=== PATIENT | male | born 1960 | race African-American/Black ===

== ENCOUNTER 2022-08-15 18:32 | Emergency (ER) | payer MEDICARE, SELFPAY ==
--- NOTE | 2022-08-15 18:42 | ED.LOWEXIN ---
HPI - Extremity Injury (Lower) General Chief Complaint: Extremity Injury, Lower Stated Complaint: Left Foot Pain Source: patient and RN notes reviewed History of Present Illness HPI Narrative: 64 yo M presents to urgent care with at side. Pt states he began having a gout flare-up in his left great toe yesterday. Pt states he has these often due to his renal failure and inability to take allopurinol daily. Pt states he now takes allopurinol 3x/week since his kidney transplant has failed and he is now back on dialysis. Pt denies any injury or trauma to the foot. Denies any fevers, chills, numbness, or tingling. Related Data Home Medications Medication Instructions Recorded Confirmed allopurinol 100 mg tablet mg 08/15/22 apixaban 5 mg tablet (Eliquis) mg 08/15/22 azathioprine 100 mg tablet mg 08/15/22 bupropion HCl 150 mg 24 hr tablet, mg PO 08/15/22 extended release carvedilol 25 mg tablet mg 08/15/22 diltiazem HCl 180 mg mg PO 08/15/22 capsule,extended release 24 hr, controlled (DILT-XR) famotidine 20 mg tablet mg 08/15/22 fluticasone furoate 200 inhalation 08/15/22 mcg-vilanterol 25 mcg/dose inhalation powder (Breo Ellipta) hydralazine 10 mg tablet mg 08/15/22 hydrocodone 10 mg-acetaminophen tablet 08/15/22 325 mg tablet montelukast 10 mg tablet mg 08/15/22 pravastatin 40 mg tablet mg 08/15/22 prednisone 5 mg tablet mg 08/15/22 sildenafil 100 mg tablet mg 08/15/22 tacrolimus 1 mg capsule, mg 08/15/22 immediate-release temazepam 30 mg capsule mg 08/15/22 Allergies Allergy/AdvReac Type Severity Reaction Status Date / Time No Known Allergies Allergy Verified 08/15/22 18:59 Review of Systems Review of Systems: CONSTITUTIONAL: Denies fever, chills, or sweats. EYES: Denies visual changes, redness, or discharge. ENT: Denies otalgia and sore throat CARDIOVASCULAR: Denies chest pain, palpitations, or edema. RESPIRATORY: Denies cough or dyspnea. GASTROINTESTINAL: Denies abdominal pain, nausea, vomiting, or diarrhea. GENITOURINARY: Denies dysuria or hematuria. SKIN: Denies rash or itching. MUSCULOSKELETAL: Denies back pain, joint pain, or myalgia. NEUROLOGIC: Denies headache, numbness, or weakness. Pertinent positives per HPI. PMFSH Comments At the time of my signature, I reviewed and agree with the nursing past medical, surgical, social, and family history. There is no relevant family history pertinent to the patient complaint. Exam Narrative: GENERAL: This is a well-nourished, well-developed patient, in no apparent distress. HEAD: normocephalic, atraumatic. EYES: Sclera clear/white. Vision is grossly intact. EARS: External ears normal, auditory canals clear and without drainage. Hearing grossly intact. NOSE: External nose normal with no obvious nasal discharge, nares without redness, no rhinorrhea. THROAT: Mucous membranes moist, posterior pharynx clear. NECK: Neck supple, non-tender without lymphadenopathy, masses or thyromegaly. CARDIOVASCULAR: Regular rate and rhythm without murmurs, gallops, or rubs. RESPIRATORY: Clear to auscultation. Breath sounds equal bilaterally. No wheezes, rales, or rhonchi. SKIN: warm, intact with no suspicious lesions or rash, good texture and turgor. NEURO: awake, alert, and oriented to person, place and time. There were no obvious focal neurologic abnormalities. EXTREMITIES:Left MTP joint edematous, warm, and tender. + thrill noted to left upper arm dialysis graft Course Course Level of Care: Express Care Visit Vital Signs Vital signs: Reviewed MDM - Extremity Injury (Lower) MDM Narrative Medical decision making narrative: Take steroids as directed. Follow up with PCP next week. Differential Diagnosis Differential diagnosis: Likely fracture of toe and other (OA, gout) Critical Care Time Critical Care Time Critical Care Time: No Discharge Plan Discharge Clinical Impression: Gout Qualifiers: Gout site: foot
[2022-08-15 18:43] VITALS: BP 151/72; PULSE 78; RESP 18; TEMP 37.1; O2SAT 100
== END 2022-08-15 19:05 | disposition home or self-care (01) ==
PROVIDERS: Emergency Provider Nurse Practitioner Family; PCP Internal Medicine
DX: M10.9 Gout, unspecified (principal); E78.00 Pure hypercholesterolemia, unspecified; I10 Essential (primary) hypertension; K21.9 Gastro-esophageal reflux disease without esophagitis; Z99.2 Dependence on renal dialysis; T86.12 Kidney transplant failure; Z85.528 Personal history of other malignant neoplasm of kidney; M19.90 Unspecified osteoarthritis, unspecified site
CPT/HCPCS: 99213; G0463

== ENCOUNTER 2023-09-29 10:17 | Emergency (ER) | payer MEDICARE, BC, SELFPAY ==
--- NOTE | ~2023-09-29 | XR_ITS ---
3 VIEWS THORACIC SPINE Ordering provider: Cheyenne Epstein NP History: . right thoracic back pain,HX DIALYSIS . Comparison: None. FINDINGS: VERTEBRAL BODIES: Normal height and alignment. No visible fracture or subluxation. Degenerative campbell es of the spine. DISK SPACES: Multilevel narrowing of the disc spaces in the mid and upper thoracic area. SOFT TISSUES: Normal. IMPRESSION: No acute osseous abnormality of the thoracic spine. Reviewed, dictated and finalized at location A.
[2023-09-29 10:22] VITALS: BP 138/76; PULSE 89; RESP 16; TEMP 37.2; O2SAT 100
--- NOTE | 2023-09-29 10:56 | ED.BACK ---
HPI - Back Pain/Injury General Chief Complaint: Back Pain/Injury Stated Complaint: Back pain Time Seen by Provider: 09/29/23 10:45 Source: patient, RN notes reviewed and old records reviewed Mode of arrival: ambulatory Limitations: no limitations History of Present Illness HPI Narrative: 63 year old male presents to [facility] care with one week duration of upper right sided back pain with some spasms noted. Patient reports that pain goes across his whole upper back at times but constant in right upper back, has obtained some pain decrease with use of Arthritis Tylenol and heating pad. Patient reports he did lift and carry a lot of grocery bags about a week ago, denies any fall or any pain with deep breathing. Patient is on kidney dialysis 3 times per week and has had failed transplant. He reports that he had 4 teeth removed about 2 weeks ago and now has to finish getting dental care to be placed back on transplant list. MD elicited complaint: back pain Pertinent past history: other (failed kidney transplant is on dialysis 3 times per week) Onset (ago): week(s) (1) Pain scale (0-10): 3 Quality: aching Location: right upper back and left upper back Treatments prior to arrival: heat therapy and acetaminophen Work related injury: No Related Data Home Medications Medication Instructions Recorded Confirmed allopurinol 100 mg tablet 100 mg PO 3XW 08/15/22 08/15/22 azathioprine 100 mg tablet 100 mg PO DAILY 08/15/22 08/15/22 bupropion HCl 150 mg 24 hr tablet, 150 mg PO DAILY 08/15/22 08/15/22 extended release carvedilol 25 mg tablet 25 mg PO BID 08/15/22 08/15/22 diltiazem HCl 180 mg 180 mg PO DAILY 08/15/22 08/15/22 capsule,extended release 24 hr, controlled (DILT-XR) famotidine 20 mg tablet 20 mg PO BID 08/15/22 08/15/22 fluticasone furoate 200 1 inh inhalation DAILY 08/15/22 08/15/22 mcg-vilanterol 25 mcg/dose inhalation powder (Breo Ellipta) hydralazine 10 mg tablet 10 mg PO BID 08/15/22 08/15/22 hydrocodone 10 mg-acetaminophen 1 tablet PO Q12H PRN Pain 08/15/22 08/15/22 325 mg tablet montelukast 10 mg tablet 10 mg PO DAILY 08/15/22 08/15/22 pravastatin 40 mg tablet 40 mg PO DAILY 08/15/22 08/15/22 prednisone 5 mg tablet See Rx Instructions .Route .COMPLEX 08/15/22 08/15/22 sildenafil 100 mg tablet See Rx Instructions .Route .COMPLEX 08/15/22 08/15/22 temazepam 30 mg capsule 30 mg PO DAILY 08/15/22 08/15/22 Vitamin D3 09/29/23 sevelamer carbonate 800 mg tablet mg 09/29/23 tacrolimus 1 mg capsule, mg 09/29/23 immediate-release Allergies Allergy/AdvReac Type Severity Reaction Status Date / Time No Known Allergies Allergy Verified 09/29/23 10:27 Review of Systems Review of Systems: CONSTITUTIONAL: Denies fever, chills, or sweats. EYES: Denies visual changes, redness, or discharge. ENT: Denies rhinorrhea, congestion, sore throat, or otalgia. CARDIOVASCULAR: Denies chest pain, palpitations, or edema. RESPIRATORY: Denies cough or dyspnea. GASTROINTESTINAL: Denies abdominal pain, nausea, vomiting, or diarrhea. GENITOURINARY: Denies dysuria or hematuria. SKIN: Denies rash or itching. MUSCULOSKELETAL:Reports pain across upper back mainly to right upper back for one week, or myalgia. NEUROLOGIC: Denies headache, numbness, or weakness. PSYCHIATRIC: Reports history of anxiety or depression. All systems reviewed & are unremarkable except as noted in HPI and below PMFSH Past Medical History Medical History (Updated 09/30/23 @ 10:14 by Cheyenne Epstein NP) Depression Dialysis patient 3 times per week has fistula left upper arm Failed kidney transplant GERD (gastroesophageal reflux disease) Gout H/O unilateral nephrectomy History of kidney cancer Hyperlipidemia Hypertension Kidney failure Pain in both knees Surgical History Surgical History (Updated 09/30/23 @ 10:20 by Cheyenne Epstein NP) History of appendectomy History of nephrectomy History of tooth extraction 09/29/2023 (4 teeth extraction
== END 2023-09-29 11:53 | disposition home or self-care (01) ==
PROVIDERS: Emergency Provider Registered Nurse; PCP Internal Medicine
DX: M54.6 Pain in thoracic spine (principal); T86.12 Kidney transplant failure; Z99.2 Dependence on renal dialysis; K21.9 Gastro-esophageal reflux disease without esophagitis; M10.9 Gout, unspecified; Z85.528 Personal history of other malignant neoplasm of kidney; E78.5 Hyperlipidemia, unspecified; I10 Essential (primary) hypertension
CPT/HCPCS: 72072; 99213; G0463